=== PATIENT | male | born 2000 | race Caucasian/White ===

== ENCOUNTER 2019-02-13 04:41 | Emergency (ER) | payer OTHER, BC, SELFPAY ==
[2019-02-13 04:42] VITALS: BP 158/77; PULSE 134; RESP 24; TEMP 37.3; O2SAT 97; BMI 43.2
--- NOTE | 2019-02-13 04:56 | RAD_ITS ---
STUDY: X-RAY - LEFT WRIST REASON FOR EXAM: Male, 18 years old. Pain after smashing. TECHNIQUE: 3 view(s) of the wrist were obtained. COMPARISON: X-ray hand FINDINGS: Normal visualized distal radius and ulna. Normal radiocarpal articulation. Normal distal radioulnar articulation. Normal carpal bones. Normal carpal articulations. Normal carpometacarpal articulation of the thumb. Normal second through fifth carpometacarpal articulations. Normal visualized metacarpal bones. The soft tissue structures are unremarkable. RAD/Wrist min 3 Views IMPRESSION: Normal x-ray examination of the wrist. Electronically Signed: Noah Marshall MD at 5:33 EDT , Service support ,
--- NOTE | 2019-02-13 05:00 | ED.DCSUM_ITS ---
- ER Visit Summary Date of Service: 02/13/19 Chief Complaint: Left wrist injury History of Present Illness: The patient is a 18 M presenting with left wrist injury. Patient was at work and working with a press. He states a latch came down and his wrist was smashed between a latch and a bolt. He is right-handed. This occurred just prior to arrival. No other injuries. Physical Examination: Vitals are stable. Patient is afebrile. Alert no acute distress. HEENT exam is unremarkable. Neck is supple. Lungs are clear and equal bilaterally. Heart is regular rate and rhythm. Extremities left wrist ulnar tenderness to palpation. Hand and elbow are nontender. Normal cap refill. Skin is warm and dry. No focal neurologic deficit. Remainder of exam is unremarkable. Emergency Department Course and Treatment: X-ray left hand and wrist showed no acute process. Patient was given [place]. Velcro wrist splint was applied. He is advised to ice and elevate. Advised to follow-up with [facility]. Advised return to ED if worsening complaints. Disposition: Discharge home Impression: Left wrist contusion This note was generated with [employer] dictation software. It may contain incorrect words, spelling, and punctuation that were not noted in review of the chart prior to signing ED Disposition - Plan for ED Patient: Instructions: ED Contusion Upper Ext Prescriptions: Hydrocodone Bitart/Apap 5-325 [[place] 5MG-325MG] 1 tablet PO Q6H PRN PRN 3 Days #10 tablet PRN Reason: Pain Referrals: [facility] [GROUP OF PHYSICIANS] -
--- NOTE | 2019-02-13 05:11 | RAD_ITS ---
STUDY: X-RAY - LEFT HAND REASON FOR EXAM: Male, 18 years old. Pain after smash. TECHNIQUE: 3 view(s) of the hand. COMPARISON: X-ray wrist. FINDINGS: Normal radiocarpal articulation. Normal distal radioulnar joint. Normal visualized carpal bones. Normal carpal articulations Normal carpometacarpal articulation of the thumb. Normal second through fifth carpometacarpal joints. Normal metacarpi. Normal metacarpophalangeal joint of the thumb. Normal interphalangeal joint of the thumb. Normal proximal and distal phalanges of the thumb. Normal metacarpophalangeal joints of the second through fifth fingers. Normal proximal and distal interphalangeal joints of the second through fifth fingers. Normal phalanges of the second through fifth fingers. The soft tissue structures are unremarkable. RAD/Hand Min 3 Views IMPRESSION: Normal x-ray examination of the hand. Electronically Signed: Noah Marshall MD at 5:32 EDT , Service support ,
--- NOTE | 2019-02-13 05:43 | DCINST.ED_ITS ---
ED Disposition - Plan for ED Patient: Instructions: ED Contusion Upper Ext Prescriptions: Hydrocodone Bitart/Apap 5-325 [[place] 5MG-325MG] 1 tablet PO Q6H PRN PRN 3 Days #10 tablet PRN Reason: Pain Referrals: [facility] [GROUP OF PHYSICIANS] -
[2019-02-13] MEDS: HYDROcodone Bitartrate/Apap 5/325 Tablet PO (06:20)
[2019-02-13 06:29] VITALS: BP 134/68; PULSE 97; RESP 18; O2SAT 97
== END 2019-02-13 06:30 | disposition home or self-care (01) ==
LOC: ED 05:35
PROVIDERS: Emergency Provider Emergency Medicine; Family Provider Family Medicine; PCP Family Medicine
DX: S60.212A Contusion of left wrist, initial encounter (principal); W31.89XA Contact with other specified machinery, initial encounter; Y93.89 Activity, other specified; Y92.89 Other specified places as the place of occurrence of the external cause; Y99.0 Civilian activity done for income or pay
CPT/HCPCS: 73110; 73130; 99283